=== PATIENT | female | born 1970 | race Caucasian/White ===

== ENCOUNTER → 2021-03-13 | Day surgery (SDC) | payer OTHER ==
[~2021-03-13] VITALS: Ht 157.5 cm; Wt 71.7 kg
[~2021-03-13] MED LIST: NEURONTIN100 MG PO; NORCO5 PO; OMEPRAZOLE 20 M20 M1 PO; TRAMADOL 50 MG50 MG PO; VENTOLIN HFA INH8 GM INH; ZANAFLEX4 MG PO
--- NOTE | ~2021-03-13 | O ---
[facility] [place] [address] OPERATIVE REPORT Name: SVETA CUI Room #: REG [facility]#: [id number] Admission: 03/13/21 Attend Phys: Luciano Larson MD Discharge: Date of : 74 Report #: [id number] THIS REPORT FOR: cc: FAM - Family physician unknown FAM - Family physician unknown Luciano Larson MD ~ DATE OF SERVICE: 03/13/2021 PREOPERATIVE DIAGNOSIS: Right knee chondromalacia of patella. POSTOPERATIVE DIAGNOSES: 1. Right knee chondromalacia of patella. 2. Grade III chondromalacia of the medial femoral condyle. 3. Pathologic medial plica. PROCEDURES: 1. Right knee arthroscopy with patellar and medial femoral chondroplasty. 2. Medial plica excision. SURGEON: Luciano Larson MD IMPLEMENTATION ARCHITECT: Tracie Pate PA-C. ANESTHESIA: LMA. TOURNIQUET TIME: 16 minutes. ESTIMATED BLOOD LOSS: Minimal. COMPLICATIONS: None. SPECIMENS: None. CONDITION UPON LEAVING THE OR: Stable. INDICATIONS FOR PROCEDURE: The patient is a 50-year-old female who has had anterior right knee pain. She had an MRI scan showing to have chondromalacia of the patella. She had failed conservative measures for this and after discussion with her regarding treatment options, she elected for knee arthroscopy with chondroplasty and procedures as indicated. DESCRIPTION OF PROCEDURE: Risks, benefits, alternatives, complications were discussed in detail with the patient including but not limited to risk of anesthesia, risk of damage to nerves, arteries, blood vessels, risk for infection, bleeding, risk for continued knee pain and need for reoperation. Informed consent was obtained from the patient. Right knee was appropriately [facility] [address] [place] [address] OPERATIVE REPORT Name: SVETA CUI Room #: REG [facility]..#: [id number] Admission: 03/13/21 Attend Phys: Luciano Larson MD Discharge: Date of : 74 Report #: [id number] marked in the preoperative holding area. IV Ancef was given for preoperative antibiotics. She was brought to the operating room and placed in supine position on the operating room table. LMA anesthesia was induced without complication. Tourniquet was placed on the right thigh. Right lower extremity was prepped and draped in normal sterile fashion. Timeout was performed properly identifying the patient and procedure as well as instrumentation. All in the operating room in agreement. Right lower extremity was exsanguinated, tourniquet was inflated. Tourniquet time was 16 minutes. Standard anterolateral portal was established with 11 blade through the skin. Arthroscope was introduced into the patellofemoral compartment. Diagnostic arthroscopy was undertaken. Patellofemoral compartment was visualized and found to have grade III chondromalacia of the patella. Medial gutter was visualized and there was found to be a large thickened medial plica. Medial compartment was visualized and medial portal was established under arthroscopic visualization. Probe was introduced in the medial compartment and there was noted to be an intact medial meniscus. There was grade 3 chondromalacia of the medial femoral condyle and chondroplasty of this area was performed. Notch was visualized and found to have an intact anterior cruciate ligament. Lateral compartment was visualized and found to have an intact lateral meniscus. Scope was placed back into the patellofemoral compartment and chondroplasty of the patella was performed with an oscillating shaver. Medial plica was excised with an oscillating shaver. All fluid was allowed to drain from the knee. Knee was injected with 10 mL of 0.5% Marcaine. Incision was closed with 3-0 nylon. Soft dressing of Adaptic, 4 x 4, Webril, Antoine wrap were applied. The patient tolerated this procedure well and went to recovery room under care of anesthesia postoperatively. By: 1400 1659 Luciano Larson MD /nt
[2021-03-13 07:28] VITALS: BP 128/83
[2021-03-13 08:53] VITALS: BP 128/83
== END | disposition home or self-care (01) ==
LOC: OR 06:18
PROVIDERS: ATTEND Orthopaedic Surgery
DX: M67.51 Plica syndrome, right knee (principal); M94.261 Chondromalacia, right knee; J45.909 Unspecified asthma, uncomplicated; Z98.890 Other specified postprocedural states; Z20.822 Contact with and (suspected) exposure to COVID-19; Z79.899 Other long term (current) drug therapy; Z88.2 Allergy status to sulfonamides
CPT/HCPCS: 50010; 50101; 50405; 56526; 57103; 57180; 58577; 58589; 62110; 62900; 70005